=== PATIENT | male | born 1970 | race American Indian/Alaskan Native ===

== ENCOUNTER 2018-01-19 09:57 | Outpatient (CLI) | payer OTHER ==
--- NOTE | 2018-01-19 10:48 | XRay Report ---
CHEST WITH BILATERAL RIB DETAIL SIX VIEWS: 01/19/18 09:57:00 CLINICAL: Bilateral rib pain. FINDINGS: No rib fracture or rib lesion.The lungs are normally expanded and clear. No pneumothorax. Normal heart and pulmonary vasculature. The lungs are clear. No airspace disease or pleural effusion. Normal soft tissues. IMPRESSION: Negative with no rib fracture or rib lesion identified.
== END 2018-01-19 09:58 | disposition home or self-care (01) ==
LOC: SPVIMAG 09:57
DX: R07.81 Pleurodynia (principal)
CPT/HCPCS: 71111